=== PATIENT | female | born 1980 | race Caucasian/White ===

== ENCOUNTER 2019-08-16 15:10 | Emergency (ER) | payer MEDICAID ==
[~2019-08-16] VITALS: Ht 180.3 cm; Wt 134.1 kg
[2019-08-16 16:42] VITALS: BP 138/92
== END 2019-08-16 18:00 | disposition home or self-care (01) ==
LOC: ER 15:11
DX: R51 Headache (principal); E11.65 Type 2 diabetes mellitus with hyperglycemia; E78.00 Pure hypercholesterolemia, unspecified; I10 Essential (primary) hypertension; F15.90 Other stimulant use, unspecified, uncomplicated; F17.200 Nicotine dependence, unspecified, uncomplicated; Z88.5 Allergy status to narcotic agent
CPT/HCPCS: 82948; 99282

== ENCOUNTER 2019-08-24 19:36 | Emergency (ER) | payer MEDICAID ==
[~2019-08-24] VITALS: Ht 180.3 cm; Wt 134.0 kg
[2019-08-24 20:24] LABS: BASOPHILS # (AUTO) 0.1 X10'3 (0-0.2); BASOPHILS % (AUTO) 0.8 % (0-1); EOSINOPHILS # (AUTO) 0.2 X10'3 (0-0.9); EOSINOPHILS % (AUTO) 2.1 % (0-6); HEMATOCRIT 40.6 % (35.0-45.0); HEMOGLOBIN 13.7 g/dl (12.0-16.0); LYMPHOCYTES # (AUTO) 4.8 X10'3 (1.1-4.8); LYMPHOCYTES % (AUTO) 41.1 % (21-51); MEAN CORPUSCULAR HEMOGLOBIN 29.8 PG (27.0-31.0); MEAN CORPUSCULAR HGB CONC 33.8 g/dL (33.0-36.5); MEAN CORPUSCULAR VOLUME 88.1 FL (78-98); MEAN PLATELET VOLUME 8.6 FL (7.4-10.4); MONOCYTES # (AUTO) 0.6 X10'3 (0-0.9); MONOCYTES % (AUTO) 5.4 % (2-12); NEUTROPHILS # (AUTO) 5.9 X10'3 (1.8-7.7); NEUTROPHILS % (AUTO) 50.6 % (42-75); PLATELET COUNT 334 X10'3 (140-440); RED BLOOD COUNT 4.61 X10'6 (4.20-5.60); WHITE BLOOD COUNT 11.6 X10'3 (4.5-11.0)
[2019-08-24 20:41] LABS: ALANINE AMINOTRANSFERASE 31 U/L (12-78); ALBUMIN 3.7 G/DL (3.4-5.0); ALBUMIN/GLOBULIN RATIO 1.1 (1.1-1.5); ALKALINE PHOSPHATASE 86 IU/L (46-116); ANION GAP 6 (8-16); ASPARTATE AMINO TRANSFERASE 17 U/L (10-37); BILIRUBIN,TOTAL 0.2 MG/DL (0.1-1.0); BLOOD UREA NITROGEN 16 MG/DL (7-18); CALCIUM 9.3 MG/DL (8.5-10.1); CHLORIDE 104 MMOL/L (99-107); CREATININE 0.94 MG/DL (0.40-0.90); GLUCOSE 147 MG/DL (70-104); SODIUM 140 MMOL/L (135-145); TOTAL CARBON DIOXIDE 30.2 MMOL/L (24-32); TOTAL PROTEIN 7.2 G/DL (6.4-8.2); eGFR 66 ML/MIN
[2019-08-24] MEDS ORDERED: ketorolac trometh inj. 60 MG/2 ML VIAL IM ONE (20:50)
[2019-08-24 22:15] VITALS: BP 130/94
== END 2019-08-24 22:16 | disposition home or self-care (01) ==
LOC: ER 19:37
DX: R07.89 Other chest pain (principal); R51 Headache; R11.0 Nausea; E78.00 Pure hypercholesterolemia, unspecified; I10 Essential (primary) hypertension; E11.9 Type 2 diabetes mellitus without complications; F15.90 Other stimulant use, unspecified, uncomplicated; Z87.891 Personal history of nicotine dependence; Z88.5 Allergy status to narcotic agent
CPT/HCPCS: 36415; 71045; 80053; 84484; 85025; 93005; 96372; 99285; J1885

== ENCOUNTER 2019-08-31 15:08 | Emergency (ER) | payer MEDICAID ==
[~2019-08-31] VITALS: Ht 180.3 cm; Wt 111.0 kg
[2019-08-31 15:34] VITALS: BP 131/40
== END 2019-08-31 16:23 | disposition home or self-care (01) ==
LOC: ER 15:08
DX: M79.674 Pain in right toe(s) (principal); E78.00 Pure hypercholesterolemia, unspecified; I10 Essential (primary) hypertension; E11.9 Type 2 diabetes mellitus without complications; F15.90 Other stimulant use, unspecified, uncomplicated; Z88.5 Allergy status to narcotic agent
CPT/HCPCS: 99281

== ENCOUNTER 2019-10-17 10:53 | Emergency (ER) | payer MEDICAID ==
[~2019-10-17] VITALS: Ht 180.3 cm; Wt 160.0 kg
--- NOTE | 2019-10-17 11:11 | NUR ---
HAVING GONZALEZ'S FOR PAST 2MOS, SEEING WHITE ORBS, EYE PRESSURE. WHEN BENDS DOWNS AND BACK UP GETS DIZZY.
[2019-10-17] MEDS ORDERED: ketorolac trometh inj. 60 MG/2 ML VIAL IM ONE (11:25)
[2019-10-17] MEDS ORDERED: dexamethasone 4mg tablet PO ONE (11:25)
[2019-10-17] MEDS ORDERED: aspirin 325mg tablet PO ONE (11:25)
[2019-10-17] MEDS ORDERED: proCHLORperazine 10 MG/2 ml inj IM ONE (11:25)
[2019-10-17] MEDS ORDERED: acetaminophen 325mg tablet PO ONE (11:25)
[2019-10-17 11:43] VITALS: BP 153/83
== END 2019-10-17 11:44 | disposition home or self-care (01) ==
LOC: ER 10:54
DX: G89.29 Other chronic pain (principal); R51 Headache; H53.149 Visual discomfort, unspecified; R42 Dizziness and giddiness; H53.8 Other visual disturbances; E78.00 Pure hypercholesterolemia, unspecified; I10 Essential (primary) hypertension; E11.9 Type 2 diabetes mellitus without complications; F15.90 Other stimulant use, unspecified, uncomplicated; Z72.89 Other problems related to lifestyle; Z88.5 Allergy status to narcotic agent
CPT/HCPCS: 82948; 96372; 99284; J0780; J1885